=== PATIENT | female | born 1985 | race Caucasian/White ===

== ENCOUNTER 2021-05-13 16:42 | Inpatient (IN) | payer OTHER ==
[~2021-05-13] VITALS: Ht 172.7 cm; Wt 86.2 kg
[2021-05-13 21:40] LABS: HCT 36.5 % (37.0-47.0); HGB 11.9 g/dl (12.5-16.0); MCH 29.5 pg (25.0-31.0); MCHC 32.6 g/dL (32.0-36.0); MCV 90.6 fL (78.0-100.0); RBC 4.03 M/uL (4.20-5.40); RDW 13.1 % (11.5-14.0); WBC 10.4 K/uL (4.0-10.5)
[2021-05-13 21:41] LABS: BILIRUBIN NEGATIVE (NEGATIVE); BLOOD NEGATIVE Ery/uL (NEGATIVE); CLARITY CLEAR (CLEAR); COLOR YELLOW (YELLOW); GLUCOSE (U) NORMAL (NORMAL); LEUKOCYTES NEGATIVE Leu/uL (NEGATIVE); NITRITE NEGATIVE (NEGATIVE); PROTEIN NEGATIVE (NEGATIVE); UROBILINOGEN 0.2 mg/dL (0.2-1.0); pH 6.5 (5.0-9.0)
[2021-05-15 06:20] LABS: HCT 37.3 % (37.0-47.0); HGB 12.2 g/dl (12.5-16.0); MCH 30.1 pg (25.0-31.0); MCHC 32.7 g/dL (32.0-36.0); MCV 92.1 fL (78.0-100.0); MPV 12.4 fL (6.0-9.5); RBC 4.05 M/uL (4.20-5.40); RDW 13.2 % (11.5-14.0); WBC 13.5 K/uL (4.0-10.5)
== END 2021-05-16 14:00 | disposition home or self-care (01) | DRG 806 ==
LOC: FOB 16:42
PROVIDERS: ADMIT Obstetrics & Gynecology
PROC: 10E0XZZ Delivery of Products of Conception, External Approach (ICD-10-PCS; principal; 2021-05-14)
PROC: 0HQ9XZZ Repair Perineum Skin, External Approach (ICD-10-PCS; 2021-05-14)
DX: O99.02 Anemia complicating childbirth (principal); O99.12 Other diseases of the blood and blood-forming organs and certain disorders involving the immune mechanism complicating childbirth; Z37.0 Single live birth; Z3A.39 39 weeks gestation of pregnancy; D69.6 Thrombocytopenia, unspecified; Z20.822 Contact with and (suspected) exposure to COVID-19; O26.03 Excessive weight gain in pregnancy, third trimester; O69.81X0 Labor and delivery complicated by cord around neck, without compression, not applicable or unspecified; O70.0 First degree perineal laceration during delivery
CPT/HCPCS: 36415; 80305; 81003; 85025; 86900; 86901; 90744; J7120; U0002